=== PATIENT | male | born 1995 | race Caucasian/White ===

== ENCOUNTER 2017-02-18 10:34 | Emergency (ER) | payer OTHER ==
[2017-02-18 10:42] VITALS: BP 127/75; PULSE 78; TEMP 97.6; BMI 23.7
--- NOTE | 2017-02-18 10:48 | PDOC ---
History of Present Illness - General Chief Complaint: Sore Throat Stated Complaint: SORE THROAT Time Seen by Provider: 02/18/17 10:47 History Source: Patient Exam Limitations: No Limitations - History of Present Illness Initial Comments: 02/18/17 11:07 This is a 22-year-old male who comes in complaining of some upper respiratory tract symptoms and sore throat 2 days. Patient denies any fevers. Patient denies any rashes. Patient said he was unable to go to work today because of his symptoms. Patient is otherwise healthy. PAST MEDICAL HISTORY: no significant history PAST SURGICAL HISTORY: no significant history FAMILY HISTORY: no pertinant history SOCIAL HISTORY: Pt lives with family and is employed. MEDICATIONS: reviewed ALLERGIES: As per nursing notes Review of Systems General: No fevers or chills, no weakness, no weight loss HEENT: No change in vision. + sore throat,. No ear pain CardioVascular: No chest pain or shortness of breath Respiratory:No cough, or wheezing. Gastrointestinal: no nausea, vomitting, diarrhea or constipation, No rectal bleeding Genitourinary: No dysuria, hematuria, or frequency Musculoskeletal: No joint or muscle pain or swelling Neurologic: No headache, vertigo, dizziness or loss of consciousness Psychiatric: nor depression Skin: No rashes or easy bruising Endocrine: no increased thirst or abnormal weight change Allergic: no skin or latex allergy All other systems reviewed and normal GENERAL: The patient is awake, alert, and fully oriented, in no acute distress. HEAD: Normal with no signs of trauma. THROAT: Tonsils are mildly enlarged with some mild erythema, there is no vesicular lesions, there is no exudate. NECK: Neck is supple with no meningeal signs, there is no lymphadenopathy. NOSE: There is some mild nasal congestion with clear nasal discharge EYES: Pupils equal, round and reactive to light, extraocular movements intact, sclera anicteric, conjunctiva clear. EXTREMITIES: Normal range of motion, no edema. NEUROLOGICAL: Normal speech, normal gait. grossly intact PSYCH: Normal mood, normal affect. SKIN: Warm, Dry, normal turgor, no rashes or lesions noted. Assessment and plan: This is a 22-year-old male who comes in with upper respiratory tract type symptoms and a sore throat. Patient was reassured that it is viral in nature as he does not have a fever and there is no lymphadenopathy. Patient told to take Tylenol or Motrin for the pain and symptoms and follow-up with his doctor. Patient given a note for no work until Tuesday Past History - Past Medical History Allergies/Adverse Reactions: Allergies Allergy/AdvReac Type Severity Reaction Status Date / Time No Known Allergies Allergy Unverified 02/18/17 10:39 Home Medications: Ambulatory Orders NK [No Known Home Medication] 02/18/17 COPD: No GI Disorders: Yes (ACID REFLUX) - Suicide/Smoking/Psychosocial Hx Smoking History: Current some day smoker Have you smoked in the past 12 months: Yes Number of Cigarettes Smoked Daily: 1 Information on smoking cessation initiated: Yes 'Breaking Loose' booklet given: 02/18/17 Hx Alcohol Use: (social) *Physical Exam - Vital Signs Last Vital Signs Temp Pulse Resp BP Pulse Ox 97.6 F 78 18 127/75 100 02/18/17 10:35 02/18/17 10:35 02/18/17 10:35 02/18/17 10:35 02/18/17 10:35 *DC/Admit/Observation/Transfer Diagnosis at time of Disposition: Viral pharyngitis - Discharge Dispostion Disposition: HOME Condition at time of disposition: Stable Admit: No - Referrals - Patient Instructions Additional Instructions: Tylenol or Motrin as needed for pain. Return to the emergency department immediately with ANY new, persistent or worsening symptoms. Continue any medications as previously prescribed by your physician. You should follow up with your primary doctor as soon as possible regarding today's emergency department visit. . Please make sure your doctor reviews the results of your emergency evaluation. Thank you for coming to the Emergency Department today for your care. It was a pleasure to see you today. Please note that your evaluation is INCOMPLETE until you follow-up with your doctor. - Post Discharge Activity Forms/Work/School Notes: Back to Work
== END 2017-02-18 11:15 | disposition home or self-care (01) ==
LOC: FER 10:34
DX: J02.8 Acute pharyngitis due to other specified organisms (principal); B97.89 Other viral agents as the cause of diseases classified elsewhere; F17.210 Nicotine dependence, cigarettes, uncomplicated; K21.9 Gastro-esophageal reflux disease without esophagitis
CPT/HCPCS: 99282-25

== ENCOUNTER 2017-03-30 16:35 | Emergency (ER) | payer OTHER ==
--- NOTE | 2017-03-30 16:38 | PDOC ---
History of Present Illness - General History Source: Patient, Friend Exam Limitations: No Limitations - History of Present Illness Initial Comments: 03/30/17 16:58 The patient is a 22 year old male, with no significant past medical history, who presents to the emergency department with, approx. 3 days of dry cough. The patient reports mild chest discomfort secondary to the cough. He denies any recent fevers, chills, headache or dizziness. He denies any recent nausea, vomit , diarrhea or constipation. He denies any recent chest pain or shortness of breath. Allergies: NKA Past surgical history: None reported. Social History: Nonsmoker. Denies EtOH use and recreational drug use. <Caden Lim - Last Filed: 03/30/17 16:58> - History of Present Illness Initial Comments: 03/30/17 17:05 Physical exam: Alert oriented well-developed well-nourished no acute distress. No dyspnea or tachypnea Afebrile, vital signs normal HEENT clear Neck supple without bruit mass or nodes Lungs clear with full breath sounds throughout bilaterally. No wheezes rales or rhonchi CV without murmur rub or gallop Abdomen benign Skin clear, no rash, adequate turgor and wet mucous membranes Impression: Viral URI with cough. No sign of pneumonia Plan: Symptomatic treatment, rest and follow-up if symptoms worsen. Fully ambulatory and in no distress upon discharge with family to follow-up as recommended <Joshua Olmos - Last Filed: 03/30/17 17:06> - General Chief Complaint: Pain Stated Complaint: COUGHING CHEST HURTS Past History <Caden Lim - Last Filed: 03/30/17 16:58> - Past Medical History COPD: No GI Disorders: Yes (ACID REFLUX) - Suicide/Smoking/Psychosocial Hx Smoking History: Current some day smoker Have you smoked in the past 12 months: Yes Number of Cigarettes Smoked Daily: 1 'Breaking Loose' booklet given: 02/18/17 Hx Alcohol Use: (social) <Joshua Olmos - Last Filed: 03/30/17 17:06> - Past Medical History Allergies/Adverse Reactions: Allergies Allergy/AdvReac Type Severity Reaction Status Date / Time No Known Allergies Allergy Verified 03/30/17 16:36 Home Medications: Ambulatory Orders Guaifenesin AC [Robitussin-AC] 1 - 2 tsp PO Q4HWA PRN #120 ml MDD 8 03/30/17 Ibuprofen 600 mg PO QID #20 tablet 03/30/17 Review of Systems - Review of Systems Comments:: 03/30/17 16:59 GENERAL/CONSTITUTIONAL: No fever or chills. No weakness. HEAD, EYES, EARS, NOSE AND THROAT: No change in vision. No ear pain or discharge. No sore throat. CARDIOVASCULAR: No chest pain or shortness of breath. RESPIRATORY: +Dry cough. No wheezing, or hemoptysis. GASTROINTESTINAL: No nausea, vomiting, diarrhea or constipation. GENITOURINARY: No dysuria, frequency, or change in urination. MUSCULOSKELETAL: No joint or muscle swelling or pain. No neck or back pain. SKIN: No rash NEUROLOGIC: No headache, vertigo, loss of consciousness, or change in strength/ sensation. ENDOCRINE: No increased thirst. No abnormal weight change. HEMATOLOGIC/LYMPHATIC: No anemia, easy bleeding, or history of blood clots. ALLERGIC/IMMUNOLOGIC: No hives or skin allergy. <Caden Lim - Last Filed: 03/30/17 16:58> *Physical Exam - Vital Signs Last Vital Signs Temp Pulse Resp BP Pulse Ox 98.9 F 90 18 130/46 98 03/30/17 16:36 03/30/17 16:36 03/30/17 16:36 03/30/17 16:36 03/30/17 16:36 <Caden Lim - Last Filed: 03/30/17 16:58> *DC/Admit/Observation/Transfer - Attestations Scribe Attestion: 03/30/17 16:59 Documentation prepared by Caden Lim, acting as medical records clerk for Joshua Olmos MD. <Caden Lim - Last Filed: 03/30/17 16:58> - Discharge Dispostion Admit: No <Joshua Olmos - Last Filed: 03/30/17 17:06> Diagnosis at time of Disposition: Viral URI with cough - Discharge Dispostion Disposition: HOME Condition at time of disposition: Stable - Prescriptions Prescriptions: Guaifenesin AC [Robitussin-AC] 1 - 2 tsp PO Q4HWA PRN #120 ml MDD 8 PRN Reason: Cough Ibuprofen 600 mg PO QID #20 tablet - Referrals Referrals: Sigrid Nicole MD [Staff Physician] - - Patient Instructions Printed Discharge Instructions: DI for Viral Upper Respiratory Infection -- Adult Additional Instructions: Stay home, rest, medication as directed, recheck if there is fever, shortness of breath or other difficulty breathing or swallowing. - Post Discharge Activity Forms/Work/School Notes: Back to Work
[2017-03-30 17:03] VITALS: BP 130/46; PULSE 90; TEMP 98.9; BMI 23.7
== END 2017-03-30 17:13 | disposition home or self-care (01) ==
LOC: FER 16:35
DX: J06.9 Acute upper respiratory infection, unspecified (principal); B97.89 Other viral agents as the cause of diseases classified elsewhere; R05 Cough; F17.210 Nicotine dependence, cigarettes, uncomplicated; K21.9 Gastro-esophageal reflux disease without esophagitis
CPT/HCPCS: 99282-25